=== PATIENT | male | born 1970 | race Two or more races ===

== ENCOUNTER 2022-04-20 17:56 | Emergency (ER) | payer OTHER ==
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
[2022-04-20] MEDS ORDERED: methocarbamoL 500 MG TABLET PO STA (18:28)
[2022-04-20] MEDS ORDERED: ACETAMINOPHEN 325 MG TABLET PO STA (18:28)
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
--- NOTE | 2022-04-20 20:52 | ED Physician Documentation ---
ED Addendum - Addendum Addendum: 04/20/22 20:50 I received signout of care on this patient from my colleague Dr. Felix Adne. At the time of turnover of care, the CT of the lumbar spine was pending. The CT spine is performed and there are no abnormalities on this study. He is in NAD at the time of discharge
[2022-04-20 22:08] VITALS: BP 127/89
== END 2022-04-20 20:58 | disposition home or self-care (01) ==
LOC: EDBD → ED 17:56
DX: S39.012A Strain of muscle, fascia and tendon of lower back, initial encounter (principal); V49.50XA Passenger injured in collision with unspecified motor vehicles in traffic accident, initial encounter
CPT/HCPCS: 72131; 99283; 99284; A9270